=== PATIENT | female | born 1960 | race African-American/Black ===

== ENCOUNTER 2018-12-17 01:20 | Emergency (ER) | payer BC ==
[~2018-12-17] VITALS: Ht 162.6 cm; Wt 86.2 kg
[~2018-12-17 01:20] MED LIST: AMOX500C PO; HYDR-3164 PO
[2018-12-17 01:30] VITALS: BP 140/79
--- NOTE | 2018-12-17 02:11 | PHYS DOC ---
Past Medical History Past Medical History: Gallstones, Hypertension Past Surgical History: Cholecystectomy Alcohol Use: None Drug Use: Marijuana Adult General Chief Complaint Chief Complaint: EYE PROBLEMS HPI HPI 50-year-old female presents to emergency Department complaints of right eye pain. She describes gritty feeling, redness. He had some discharge from her eye earlier. She denies any fever, visual change. In visual acuity both eyes 20/40. Nothing makes pain worse, nothing makes pain better. She states she was seen at [facility] and was given allergy type eyedrops. She states the redness is improved. All other ROS negative unless documented in HPI Review of Systems Review of Systems See Above Allergies Allergies Allergies Coded Allergies Type Severity Reaction Last Updated Verified metronidazole Allergy Intermediate "hives" 01/30/15 Yes Physical Exam Physical Exam See Above Constitutional: Well developed, well nourished, no acute distress, non-toxic appearance. [] HENT: Normocephalic, atraumatic, bilateral external ears normal, oropharynx moist, no oral exudates, nose normal. [] Eyes: PERRLA, EOMI, conjunctiva normal minimal redness appreciated, no discharge. [] Cardiovascular:Heart rate regular rhythm, no murmur [] Lungs & Thorax: Bilateral breath sounds clear to auscultation [] Skin: Warm, dry, no erythema, no rash. [] Neurologic: Alert and oriented X 3, no focal deficits noted. [] Psychologic: Affect normal, judgement normal, mood normal. [] Current Patient Data Vital Signs Vital Signs Date Time Temp Pulse Resp B/P (MAP) Pulse Ox O2 Delivery O2 Flow Rate FiO2 12/17/18 01:30 97.4 75 16 140/79 (99) 98 Room Air 97.4 EKG EKG [] Radiology/Procedures Radiology/Procedures [] Course & Med Decision Making Course & Med Decision Making Pertinent Labs and Imaging studies reviewed. (See chart for details) []50-year-old female presents to emergency Department complaints of right eye pain. She describes gritty feeling, redness. He had some discharge from her eye earlier. She denies any fever, visual change. In visual acuity both eyes 20/40. Nothing makes pain worse, nothing makes pain better. She states she was seen at [facility] and was given allergy type eyedrops. She states the redness is improved. No evidence of acute infection appreciated however patient states she had discharge and redness appreciated prior to drops Will plan for bleph-10 rx upon discharge Visual acuity as described above Dragon Disclaimer Dragon Disclaimer This electronic medical record was generated, in whole or in part, using a voice recognition dictation system. Departure Departure Impression: Primary Impression: Eye discomfort Additional Impression: Viral conjunctivitis of right eye Disposition: HOME, SELF-CARE Condition: STABLE Referrals: NO PCP (PCP) Patient Instructions: Allergic Conjunctivitis, [id number] Additional Instructions: Recommend follow up with PCP 3 - 5 days Return to the ER with worsening symptoms, intractable pain, fever, altered mental status Tylenol/Motrin as needed for pain Take antibioitics as directed Scripts Sulfacetamide Sodium (BLEPH-10) 5 Ml Drops 2 DROP EACHEYE QID, #5 ML 0 Refills Prov: LAUREN BELTRAN MD 12/17/18 Problem Qualifiers Primary Impression: Eye discomfort Laterality: right Qualified Codes: H57.11 - Ocular pain, right eye LAUREN BELTRAN MD Dec 17, 2018 02:11
[2018-12-17] MEDS ORDERED: SULF5DRO EACHEYE (02:24)
== END 2018-12-17 02:46 | disposition home or self-care (01) ==
LOC: ER 01:20
DX: B30.8 Other viral conjunctivitis (principal); I10 Essential (primary) hypertension; Z90.49 Acquired absence of other specified parts of digestive tract; Z88.8 Allergy status to other drugs, medicaments and biological substances
CPT/HCPCS: 99283